=== PATIENT | female | born 1990 ===

== ENCOUNTER 2016-05-05 21:22 | Observation (INO) | payer OTHER ==
[2016-05-05 21:55] VITALS: BP 115/69; PULSE 61; RESP 16; TEMP 99.1; O2SAT 99
--- NOTE | 2016-05-05 22:34 | ED PDOC ---
HPI: Abdomen Time Seen by Provider: 05/05/16 21:45 Chief Complaint (Nursing): Abdominal Pain Chief Complaint (Provider): Lower Abdominal Pain History/Exam Limitations: no limitations Onset/Duration Of Symptoms: Hrs (since earlier today) Quality Of Discomfort: Other (constant) Additional Complaint(s): 22:07 Ioana Monroe is a 26 year old female that presents to the ED with lower abdominal pain that began a few hours ago when she was shopping. Patient states that the pain was suddenly onset, and that it is constant and worsens in certain positions, . it is R inginual area. Past Medical History Reviewed: Historical Data, Nursing Documentation, Vital Signs Vital Signs: Last Vital Signs Temp 99.1 F 05/05/16 21:52 Pulse 61 05/05/16 21:52 Resp 16 05/05/16 21:52 BP 115/69 05/05/16 21:52 Pulse Ox 99 05/06/16 02:55 - Medical History PMH: No Chronic Diseases - Surgical History Surgical History: No Surg Hx - Family History Family History: States: Other (mother has hx of ovarian cysts) - Social History Current smoker - smoking cessation education provided: No Alcohol: None Drugs: Denies - Allergies Allergies/Adverse Reactions: Allergies Allergy/AdvReac Type Severity Reaction Status Date / Time No Known Allergies Allergy Verified 05/05/16 21:52 Review of Systems ROS Statement: Except As Marked, All Systems Reviewed And Found Negative Gastrointestinal: Positive for: Abdominal Pain (r inginual ) Physical Exam - Reviewed Nursing Documentation Reviewed: Yes Vital Signs Reviewed: Yes - Physical Exam Appears: Positive for: Non-toxic, No Acute Distress Head Exam: Positive for: ATRAUMATIC, NORMOCEPHALIC Skin: Positive for: Normal Color, Warm, Dry Neck: Positive for: Normal Cardiovascular/Chest: Positive for: Regular Rate, Rhythm Respiratory: Positive for: Normal Breath Sounds Gastrointestinal/Abdominal: Positive for: Normal Exam, Soft. Negative for: Tenderness (mild tenderness in R inginual area. (-) RLQ tenderness ), Mass, Distended, Guarding, Rebound, Hernia, Asicites Extremity: Positive for: Normal ROM Neurologic/Psych: Positive for: Alert, Oriented - Laboratory Results Result Diagrams: 05/05/16 23:30 05/05/16 23:30 - ECG O2 Sat by Pulse Oximetry: 99 (RA) Pulse Ox Interpretation: Normal Medical Decision Making Medical Decision Makin:07 Initial Impression- Abdominal Pain Initial Plan- * Beta-HCG * CMP * CBC w/ differential * Urine C& S * Urinalysis * US Transvaginal * Re-assess 02:14 US Transvaginal FINDINGS: Uterus/cervix: The endometrium measures 1 mm transvaginally. The uterus measures 6.3 cm in its cephalocaudad dimension and 2.3 x 3.6 cm in its AP and lateral dimensions. No myometrial mass. Right ovary: The right ovary demonstrates blood flow and measures 3.3 x 1.3 x 2.8 cm and demonstrates several small follicles. Left ovary: The left ovary demonstrates blood flow and measures 2.8 x 1.0 x 2.7 cm and demonstrates several follicles measuring up to 11 mm. Free fluid: No free fluid. IMPRESSION: Negative pelvic sonogram. 02:50 Labs reviewed, all WNL. Urine is neg. Pt was re-evaluated. Pt notes that she finished the last day of her menstruation cycle today. Reports improved condition with pain fully resolving on its own without the aid of any medications. Pt will be discharged routinely. Encouraged to follow-up with PMD within 1-2 days. Advised to return if condition persists or worsens. pt verbalized understanding. pt ambulating without difficulty. DX inginual pain outpt follow up Documented by Erin Jimenez/Jenna Ramos, acting as scribes for Shila Lynne MD. All medical record entries made by the Scribe were at my direction and personally dictated by me. I have reviewed the chart and agree that the record accurately reflects my personal performance of the history, physical exam, medical decision making, and the department course for this patient. I have also personally directed, reviewed, and agree with the discharge instructions and disposition. Disposition - Clinical Impression Clinical Impression: Abdominal pain - Patient ED Disposition Is Patient to be Admitted: No Counseled Patient/Family Regarding: Studies Performed, Diagnosis, Need For Followup - Disposition Disposition: Routine/Home Disposition Time: 00:00 Condition: GOOD
[2016-05-05 23:24] LABS: RBC URINE 5 /hpf (0-3); URINE BACTERIA RARE (<OCC); URINE BILIRUBIN NEGATIVE (NEGATIVE); URINE BLOOD MODERATE (NEGATIVE); URINE COLOR YELLOW (YELLOW); URINE GLUCOSE (UA) NEG (Normal); URINE KETONE NEGATIVE (NEGATIVE); URINE LEUKOCYTE ESTERASE NEG Leu/uL (Negative); URINE PROTEIN NEGATIVE (NEGATIVE); URINE UROBILINOGEN 0.2-1.0 mg/dL (0.2-1.0); WBC URINE 1 /hpf (0-5)
[2016-05-05 23:57] LABS: BASO % 0.4 % (0.0-2.0); EOS # 0.1 K/uL (0.0-0.7); EOS % 1.6 % (0.0-4.0); HEMATOCRIT 36.8 % (34.0-47.0); LYMPH # 3.4 K/uL (1.0-4.3); LYMPH % 41.1 % (20.0-40.0); MEAN CELL VOLUME 87.3 fl (81.0-99.0); MEAN CORPUSCULAR HEMOGLOBIN 29.2 pg (27.0-31.0); MEAN CORPUSCULAR HGB CONC 33.4 g/dL (33.0-37.0); MEAN PLATELET VOLUME 8.7 fl (7.2-11.7); MONO # 0.5 K/uL (0.0-0.8); MONO % 6.3 % (0.0-10.0); NEUT # 4.2 K/uL (1.8-7.0); NEUT % 50.6 % (50.0-75.0); NRBC % 0.1 % (0.0-0.0); RED CELL DISTRIBUTION WIDTH 13.7 % (11.5-14.5); WHITE BLOOD COUNT 8.3 K/uL (4.8-10.8)
[2016-05-06 00:06] LABS: ALB/GLOB RATIO 1.3 (1.0-2.1); ALKALINE PHOSPHATASE 46 U/L (38-126); ALT/SGPT 32 U/L (9-52); AST/SGOT 25 U/L (14-36); BILIRUBIN,TOTAL 0.3 mg/dl (0.2-1.3); BLOOD UREA NITROGEN 14 mg/dl (7-17); CALCIUM 9.2 mg/dL (8.4-10.2); CARBON DIOXIDE 22 mmol/L (22-30); CHLORIDE 104 mmol/L (98-107); GFR AFRICAN-AMERICAN > 60; GLUCOSE,RANDOM 88 mg/dL (65-105); POTASSIUM 3.8 MMOL/L (3.6-5.0); SODIUM 136 mmol/l (132-148); TOTAL PROTEIN 7.2 G/DL (6.3-8.2)
--- NOTE | 2016-05-06 11:03 | US ---
HISTORY: r pelvic pain COMPARISON: None available. TECHNIQUE: Transvaginal FINDINGS: UTERUS: Measures 6.3 x 3.6 x 2.3 cm. Normal in size and appearance. No fibroid or other mass lesion seen. ENDOMETRIUM: Measures 2 mm in diameter. Unremarkable. CERVIX: No cervical abnormality identified. RIGHT OVARY: Measures 3.3 x 2.8 x 1.3 cm. No solid mass. Normal flow. LEFT OVARY: Measures 2.8 x 2.7 x 1.0 cm. No solid mass. Normal flow. FREE FLUID: No significant free fluid noted. OTHER FINDINGS: None. IMPRESSION: Unremarkable pelvic ultrasound.
== END 2016-05-06 02:51 | disposition home or self-care (01) ==
LOC: H.ER 21:22 → H.EROBSV 23:18
PROVIDERS: ADMIT Emergency Medicine; ATTEND Emergency Medicine
DX: R10.31 Right lower quadrant pain (principal)